=== PATIENT | female | born 1985 | race Caucasian/White ===

== ENCOUNTER 2017-05-17 17:06 | Emergency (ER) | payer BC, OTHER ==
[~2017-05-17] VITALS: Ht 170.2 cm; Wt 55.3 kg
[2017-05-17 17:10] VITALS: TEMP 37; Ht 170.2 cm; Wt 55.3 kg
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
[2017-05-17 19:19] VITALS: BP 114/78; PULSE 79; O2SAT 100
== END 2017-05-17 19:22 | disposition home or self-care (01) ==
LOC: EDBD 17:06 → C.EDA 17:07
DX: S06.0X0A Concussion without loss of consciousness, initial encounter (principal); S80.01XA Contusion of right knee, initial encounter; S80.02XA Contusion of left knee, initial encounter; V49.40XA Driver injured in collision with unspecified motor vehicles in traffic accident, initial encounter; Y92.488 Other paved roadways as the place of occurrence of the external cause; S00.03XA Contusion of scalp, initial encounter; M94.8X9 Other specified disorders of cartilage, unspecified sites; I34.1 Nonrheumatic mitral (valve) prolapse; F17.200 Nicotine dependence, unspecified, uncomplicated; Z90.721 Acquired absence of ovaries, unilateral

== ENCOUNTER 2023-12-24 06:20 | Inpatient (IN) ==
--- NOTE | 2023-12-03 11:37 | PAT Medication Instructions ---
Medication Instructions Date of Service December 03, 2023 Home Medications albuterol sulfate 90 mcg/actuation aerosol inhaler (Proventil HFA) 2 puff inhalation QID PRN shortness of breath, wheezing biotin 10,000 mcg chewable tablet (Hair, Skin and Nails (biotin)) 10,000 mcg PO QAM cholecalciferol (vitamin D3) 25 mcg (1,000 unit) capsule (Vitamin D3) 25 mcg PO QAM cyanocobalamin (vitamin B-12) 1 tab PO QAM fluticasone 250 mcg-salmeterol 50 mcg/dose blistr powdr for inhalation (Advair Diskus) 1 inh inhalation BID PRN shortness of breath, wheezing loratadine 10 mg tablet 10 mg PO QAM multivitamin 1 tab PO QAM zinc sulfate-vitamin C 200 mg-100 mg tablet 1 tab PO QAM DO NOT take the morning of surgery biotin 10,000 mcg chewable tablet (Hair, Skin and Nails (biotin)) 10,000 mcg PO QAM cholecalciferol (vitamin D3) 25 mcg (1,000 unit) capsule (Vitamin D3) 25 mcg PO QAM cyanocobalamin (vitamin B-12) 1 tab PO QAM loratadine 10 mg tablet 10 mg PO QAM multivitamin 1 tab PO QAM zinc sulfate-vitamin C 200 mg-100 mg tablet 1 tab PO QAM Take morning of surgery albuterol sulfate 90 mcg/actuation aerosol inhaler (Proventil HFA) 2 puff inhalation QID PRN shortness of breath, wheezing (use if needed; please bring rescue inhaler with you to hospital day of surgery if possible) fluticasone 250 mcg-salmeterol 50 mcg/dose blistr powdr for inhalation (Advair Diskus) 1 inh inhalation BID PRN shortness of breath, wheezing (if needed) NOTHING TO EAT OR DRINK AFTER MIDNIGHT Other Notes If you have any questions please call us at [phone] or [phone] or [phone] or [phone]
--- NOTE | 2023-12-09 10:21 | Anesthesiology Consultation ---
Date of Service December 09, 2023 Assessment & Plan (1) Encounter for pre-operative examination: - check urine test STAT am DOS. - chlorhexidine wipes discussed with patient: she prefers to avoid use given history of severe, extensive skin reactions. Dr. Garcia's office made aware. Chart Review Chart Review: Acceptable Risk for Surgery and Patient seen in Pre Admission Testing Teaching & Discussion Pre-Anesthesia Teaching/Discussion Notes: Instructed NPO after midnight before surgery, except medications with 15 cc of water. Medication instructions provided according to the PAT guidelines. History Surgery Operation Date: 12/24/23 08:00 Proposed Procedures p Total Abdominal Hysterectomy - Jagjit Garcia MD Height/Weight Height: 5 ft 7 in Weight: 60.1 kg Allergies Allergy/AdvReac Type Severity Reaction Status Date / Time bee venom protein (honey bee) Allergy Severe Anaphylaxis Verified 12/09/23 10:29 acetaminophen [From Vicodin] Allergy Unknown "shut down Verified 12/02/23 15:03 my bladder" cocamidopropyl betaine Allergy Unknown Rash Verified 12/02/23 15:03 ethylenediamine Allergy Unknown Rash Verified 12/02/23 15:03 formaldehyde Allergy Unknown Rash Verified 12/02/23 15:03 hydrocodone [From Vicodin] Allergy Unknown "shut down Verified 12/02/23 15:03 my bladder" phenazopyridine Allergy Unknown Hives Verified 12/02/23 15:03 quaternium 15 Allergy Unknown Rash Verified 12/02/23 15:03 adhesive Allergy red rash, Verified 12/02/23 15:26 irritation Medications Home Medications Medication Instructions Recorded Confirmed Last Taken albuterol sulfate 90 mcg/actuation 2 puff inhalation QID PRN 12/02/23 12/02/23 Unknown aerosol inhaler (Proventil HFA) shortness of breath, wheezing biotin 10,000 mcg chewable tablet 10,000 mcg PO QAM 12/02/23 12/02/23 Unknown (Hair, Skin and Nails (biotin)) cholecalciferol (vitamin D3) 25 25 mcg PO QAM 12/02/23 12/02/23 Unknown mcg (1,000 unit) capsule (Vitamin D3) cyanocobalamin (vitamin B-12) 1 tab PO QAM 12/02/23 12/02/23 Unknown fluticasone 250 mcg-salmeterol 50 1 inh inhalation BID PRN shortness 12/02/23 12/02/23 Unknown mcg/dose blistr powdr for of breath, wheezing inhalation (Advair Diskus) loratadine 10 mg tablet 10 mg PO QAM 12/02/23 12/02/23 Unknown multivitamin 1 tab PO QAM 12/02/23 12/02/23 Unknown zinc sulfate-vitamin C 200 mg-100 1 tab PO QAM 12/02/23 12/02/23 Unknown mg tablet Past Medical History Medical History History of difficult venous access Hx of renal calculi last episode 4 yrs ago History of anxiety no longer taking medications Hx of mitral valve prolapse ~age 13, found out about asthma and MVP, "told it has healed itself"; no longer has to f/u cardio. Hx of cardiac murmur Asthma exercise induced asthma>has inh x2 prn "has not used advair disk for over 1 year, last used the albuterol inhaler early spring 2023" History of anesthesia reaction had to go to ER twice within 24 hours after surgery to have bladder drained and catheter placed for 4-5 days after having Vicodin; also woke up during laparoscopy for removal of ovary-[facility] [place] age 26; also tends to get hyper instead of tired after surgery/anesthesia Patient denies h/o stroke, seizures, heart attack, heart failure, DM, HTN, blood clots/DVTs or blood transfusions. Exercise / Class Metabolic Activity II 4-5 Yardwork/Stairs/Walk up hill (denies chest discomfort or shortness of breath with 1 FOS) Past Surgical History Surgical History History of dilatation and curettage x5-6 for fibroids Hx of laparoscopy w/removal ovary Past Anesthesia History No Family Hx of Anesthesia Complications and Other (see above) History of PONV No Hx of PONV and Hx of Motion Sickness Social History Smoking Status: Former smoker Smoking cigarettes per day: occasional vaping-advised Do You Dip or Chew Tobacco: No Smoking End Date: quit cigs 01/2024 Hx Alcohol Use: Yes alcohol intake frequency: holidays/special occasions only Hx Substance Use: No substance use type: does not use Review of Systems Patient denies chest pain, shortness of breath, dyspnea on exertion, snoring, witnessed apneas, reflux, fever, chills, cough, wheezing, or palpitations. Physical Exam Vital Signs Vitals BP 114/74 P 84 TEMP 98.4 SP02 100% on RA RESP 18 Physical Patient resting comfortably in chair in no acute distress, alert and oriented, responding appropriately throughout visit Full cervical extension range of motion without pain TMD 3.5 finger breadths Mallampati Score 2 Dentition: intact, denies chipped or loose teeth, caps/crowns, implants or bridges Lungs: normal respiratory effort. Good air movement, clear throughout to auscultation, no adventitious breath sounds Cardiac: regular rate and rhythm, no murmurs noted Carotid arteries: negative bruit bilat Lab Results Anesthesia Preop Results Results Anesthesia Widget: WBC 6.37 K/ul (4.8-10.8) 12/09/23 Hgb 13.7 g/dl (12.0-16.0) 12/09/23 Hct 39.9 % (37.0-47.0) 12/09/23 Plt 113 K/uL (130-400) L 12/09/23 Na 137 mmol/L (136-145) 12/09/23 K 3.8 mmol/L (3.5-5.1) 12/09/23 Cl 106 mmol/L (98-107) 12/09/23 CO2 24 mmol/L (21-32) 12/09/23 BUN 14 mg/dl (6-23) 12/09/23 Creat 0.61 mg/dl (0.6-1.2) 12/09/23 Glucose Level 94 mg/dl (70-99(Fasting)) 12/09/23 PT 10.7 Seconds (9.0-12.0) 12/09/23 PTT 29 Seconds (21-31) 12/09/23 INR 1.0 (0.9-1.1) 12/09/23 Urine Color Yellow 11/14/23 Urine Appearance Clear (Clear) 11/14/23 Urine pH 7.0 (4.5-7.5) 11/14/23 Urine Specific [place] 1.009 (1.000-1.030) 11/14/23 Urine Protein Negative (Negative) 11/14/23 Urine Glucose (UA) Negative (Negative) 11/14/23 Urine Ketones Negative (Negative) 11/14/23 Urine Blood Negative (Negative) 11/14/23 Urine Nitrite Negative (Negative) 11/14/23 Urine Bilirubin Negative (Negative) 11/14/23 Urine Urobilinogen Negative (Negative) 11/14/23 Urine Leukocyte Esterase Negative (Negative) 11/14/23 Blood Type O Positive 12/09/23 Antibody Screen NEGATIVE 12/09/23 Testing Echocardiogram Date: 09/18/19 EF 66% Normal LV wall motion No significant valvular abnormalities No evidence of MVP
--- NOTE | 2023-12-09 11:59 | History & Physical Report ---
Date of Service December 09, 2023 Assessment & Plan (1) Pelvic pain in female: (2) Intramural uterine fibroid: (3) Dysfunctional uterine bleeding: Plan Total abdominal hysterectomy with suspension of vaginal cuff. Preservation of right ovary. History of Present Illness Chief Complaint: Pelvic pain irregular heavy bleeding Primary Care Provider: NO PCP Patient is a 37-year-old 4 para 0 she said for first trimester spontaneous miscarriage. General health is complicated by asthma. She is on an inhaler as needed and Claritin. had a vasectomy for control. She has had irregular heavy bleeding. Periods can be irregular . She can skip up to 2 months. She can have 2 periods a month. At times bleeding is heavy soaking over a pad an hour associated with large clots. Bleed her periods last for 10 days. She has had 5 D&Cs in the past in and attempt to control this heavy bleeding. This pattern of irregular heavy bleeding has been present for several years. Symptoms have been getting progressively worse. Patient also has pain with her periods. This is worse during her periods. But now can start prior to her. And last after her period stops. This is associated with pain with intercourse. Specifically pain on deep penetration. Patient is being scheduled for total abdominal hysterectomy with preservation of her only ovary on the right side. Allergies Allergy/AdvReac Type Severity Reaction Status Date / Time bee venom protein (honey bee) Allergy Severe Anaphylaxis Verified 12/09/23 10:29 acetaminophen [From Vicodin] Allergy Unknown "shut down Verified 12/02/23 15:03 my bladder" cocamidopropyl betaine Allergy Unknown Rash Verified 12/02/23 15:03 ethylenediamine Allergy Unknown Rash Verified 12/02/23 15:03 formaldehyde Allergy Unknown Rash Verified 12/02/23 15:03 hydrocodone [From Vicodin] Allergy Unknown "shut down Verified 12/02/23 15:03 my bladder" phenazopyridine Allergy Unknown Hives Verified 12/02/23 15:03 quaternium 15 Allergy Unknown Rash Verified 12/02/23 15:03 adhesive Allergy red rash, Verified 12/02/23 15:26 irritation Home Medications Medication Instructions Recorded Confirmed Type albuterol sulfate 90 mcg/actuation 2 puff inhalation QID PRN 12/02/23 12/02/23 History aerosol inhaler (Proventil HFA) shortness of breath, wheezing biotin 10,000 mcg chewable tablet 10,000 mcg PO QAM 12/02/23 12/02/23 History (Hair, Skin and Nails (biotin)) cholecalciferol (vitamin D3) 25 25 mcg PO QAM 12/02/23 12/02/23 History mcg (1,000 unit) capsule (Vitamin D3) cyanocobalamin (vitamin B-12) 1 tab PO QAM 12/02/23 12/02/23 History fluticasone 250 mcg-salmeterol 50 1 inh inhalation BID PRN shortness 12/02/23 12/02/23 History mcg/dose blistr powdr for of breath, wheezing inhalation (Advair Diskus) loratadine 10 mg tablet 10 mg PO QAM 12/02/23 12/02/23 History multivitamin 1 tab PO QAM 12/02/23 12/02/23 History zinc sulfate-vitamin C 200 mg-100 1 tab PO QAM 12/02/23 12/02/23 History mg tablet Past Med/Surg History Medical History History of difficult venous access Hx of renal calculi last episode 4 yrs ago History of anxiety no longer taking medications Hx of mitral valve prolapse ~age 13, found out about asthma and MVP, "told it has healed itself"; no longer has to f/u cardio. Hx of cardiac murmur Asthma exercise induced asthma>has inh x2 prn "has not used advair disk for over 1 year, last used the albuterol inhaler early spring 2023" History of anesthesia reaction had to go to ER twice within 24 hours after surgery to have bladder drained and catheter placed for 4-5 days after having Vicodin; also woke up during laparoscopy for removal [facility] ovary[facility] 26; also tends to get hyper instead of tired after surgery/anesthesia Surgical History History of dilatation and curettage x5-6 for fibroids Hx of laparoscopy w/removal ovary Social History Smoking Status: Former smoker Tobacco Type: E-cigarettes / Vaping Cigarettes Per Day: occasional vaping-advised; Second Hand Exposure: No; Do You Dip or Chew Tobacco: No; Hx Alcohol Use: Yes Hx Substance Use: No Preferred Language: Arabic Communication Ability: Effective Non Destructive Testing Technician Required: No Beliefs That Will Affect Care: None Current Living Situation: Spouse Feels Safe at Home: Yes Assistive Devices: Glasses Physical Exam Physical Exam: Patient is a well-developed well-nourished 37-year-old white female alert oriented x 3 cooperative in no acute distress. Neck was supple trachea midline. No cervical adenopathy. Chest was clear to auscultation and percussion. Heart had a regular rhythm S1 and S2 were normal. Abdomen was soft and nontender. There was no CVA tenderness. Pelvic exam revealed a normal-appearing cervix. Uterus was anteverted top normal size. There were no adnexal masses. There was no calf tenderness.
[2023-12-24] MEDS: LR 15ML/HR IV SCH (07:05)
[2023-12-24] MEDS ORDERED: LIDOCAINE 2% 2 ML VIAL/AMP(20MG/ML) INFIL ONE (07:08)
[2023-12-24] MEDS ORDERED: ROCURONIUM BROMIDE 10 MG/ML 5 ML VIAL IV ONE ×2 (07:08→09:13)
[2023-12-24] MEDS ORDERED: ONDANSETRON INJ 2 MG/ML 2 ML VIAL ONE (07:08)
[2023-12-24] MEDS ORDERED: DEXAMETHASONE SOD INJ 4 MG/ML VIAL ONE (07:08)
[2023-12-24] MEDS ORDERED: PROPOFOL IV EMULSION 10 MG/ML 20 ML VIAL IV ONE ×3 (07:08→09:09)
[2023-12-24] MEDS ORDERED: fentaNYL citrate PF 100 MCG/2 ML VIAL ONE (07:09)
[2023-12-24] MEDS ORDERED: MIDAZOLAM HCL 1 MG/ML 2ML VIAL ONE (07:09)
--- NOTE | 2023-12-24 07:11 | History & Physical Bridge Note ---
Date of Service December 24, 2023 History & Physical Bridge Note I have examined the patient, reviewed the History & Physical and in the interval since the performance of the History & Physical I have noted the following changes of clinical significance: no changes noted
[2023-12-24 07:21] LABS: Pregnancy Test, Serum Negative (Negative)
[2023-12-24] MEDS ORDERED: MoRPHine SULFATE PF 1 MG/ML 10 ML AMP/VIAL ONE (07:34)
[2023-12-24] MEDS ORDERED: ACETAMINOPHEN 1000 MG/100 ML IV IV ONE (07:35)
[2023-12-24] MEDS: cefOXitin 2,000 MG in DEXTROSE 5 % MINI-B 50 ML IV SCH (08:00)
[2023-12-24] MEDS ORDERED: NALBUPHINE HCL 5 MG in SYRINGE 0 ML IV PRN (08:14)
[2023-12-24] MEDS ORDERED: MoRPHine SULFATE PF 1 MG/ML 10 ML AMP/VIAL INT SPINAL ONE (08:14)
[2023-12-24] MEDS ORDERED: NALOXONE HCL 0.08 MG in SYRINGE 1.8 ML IV PRN (08:14)
[2023-12-24] MEDS ORDERED: NALOXONE HCL 1 MG in SODIUM CHLORIDE 0.9% 1,000 ML IV PRN (08:14)
[2023-12-24] MEDS ORDERED: ePHEDrine sulfate 50 MG/ML AMP IV PRN (08:14)
[2023-12-24] MEDS ORDERED: ONDANSETRON INJ 2 MG/ML 2 ML VIAL IV PRN (08:14)
[2023-12-24] MEDS ORDERED: LACTATED RINGER'S 500 ML IV PRN (08:14)
[2023-12-24] MEDS ORDERED: NALOXONE HCL 0.4 MG/1 ML VIAL/CARP IV PRN (08:14)
[2023-12-24] MEDS ORDERED: DROPERIDOL 5 MG/2 ML VIAL IV PRN (08:14)
[2023-12-24] MEDS ORDERED: NO NARCOTICS OR SEDATIVES SCH (08:15)
[2023-12-24] MEDS ORDERED: SODIUM CHLORIDE 0.9% 1,000 ML IV SCH (08:15)
[2023-12-24] MEDS ORDERED: DC INTRASPINAL MORPHINE SCH (08:15)
[2023-12-24] MEDS ORDERED: GLYCOPYRROLATE 0.2 MG/ML VIAL ONE (10:19)
[2023-12-24] MEDS ORDERED: ePHEDrine sulfate 50 MG/5 ML SYR ONE (10:19)
[2023-12-24] MEDS ORDERED: NEOSTIGMINE METHYLSULFATE 1 MG/ML 10ML VIAL ONE (10:19)
[2023-12-24] MEDS: HEPARIN (PORCINE) 1000 UNIT/ML 10 ML (CATH LAB USE ONLY) ONE (10:26)
[2023-12-24] MEDS ORDERED: SENNA 8.6 MG TAB PO PRN (10:56)
[2023-12-24] MEDS ORDERED: IBUPROFEN 600 MG TAB PO PRN (10:56)
--- NOTE | 2023-12-24 10:56 | Operative Report ---
Post Operative Report Pre & Post Diagnosis Operation Date: 12/24/23 08:00 Pre-Op Diagnosis: Fibroid Uterus, Dysmenorrhea, Menorrhagia Post-Op Diagnosis: Fibroid Uterus, Dysmenorrhea, Menorrhagia I identified the patient and participated in the time-out.: Yes Procedure Operation Date: 12/24/23 08:00 Actual Procedures p Total Abdominal Hysterectomy(Not Applicable) - Jagjit Garcia MD Surgeon Jagjit Garcia MD Car Salter none Estimated Blood Loss 450 Findings Consistent with Post-Op Diagnosis absent right ovary adhesion of left ovary Specimens uterus and cervix Drains shiv drain vaginal cuff with safety pin Anesthesia Type General Indications Persistent heavy vaginal bleeding. History of 5 D&Cs. Description of Procedure Patient was brought to the OR correctly identified by armband and conversation. Spinal narcotics were administered by the anesthesiologist. Patient was then intubated with general anesthesia. Vaginal prep was done with Betadine. Rogers catheter was inserted aseptically into the bladder connected to gravity drainage. Compression stockings were applied. Lower abdomen was painted with an alcohol-based sterilizing solution. Draped in usual sterile fashion. A small Pfannenstiel incision was noted and this incision was extended on either side. Incision was carried down to the anterior fascia by blunt and sharp dissection. The fascia was incised transversely from the underlying muscle by blunt and sharp dissection. Recti muscles were in the midline peritoneum was carefully raised and entered. An O'Rajinder-O'Khan self-retaining retractor with 4 laparotomy packs were used to retract the intestines and provide adequate exposure of the pelvic cavity the top normal size uterus was brought out through the incision. The only ovary was the right ovary. It was fixed to the lateral pelvic wall. And was freed with blunt dissection. Following this the round ligaments on either side were clamped proximally and distally. And then ligated with a transfixion suture of chromic catgut and a backup suture of silk. An incision was made above the vesicouterine fold the bladder was advanced out of the operative field. Right broad ligament was punched posterior through. Isolating the ovarian ligament and tube on the right side. This was clamped proximally and distally. The distal portion was ligated with a transfixion suture of chromic catgut then a free tie of silk. And the ends were cauterized. The bladder was advanced out of the operative field exposing the uterine vessels. These were clamped with a curved Adrien. And then doubly ligated with a Chromic Gut suture. The cardinal ligaments were then cut by hugging the cervix. At with a curved Adrien then cutting with a stump. And then ligating with a heavy Chromic Gut suture this was done in 3 steps because of the length of the cardinal ligament. The cervix was then shelled out with a electrocautery knife. The suspect surging the surgical specimen consisting of uterus and cervix. The vaginal cuff was grasped at each angle with a straight [place]. A suture of chromic catgut was used to fix the angle of the cuff to the stumps of the cardinal ligaments on each side. The vaginal opening was then approximated front to back with a [id number] suture of chromic gut sutures which were anchored in the stumps of the cardinal ligament. The midportion of the vaginal cuff was whipstitched open with a continuous Chromic Gut suture. The uterosacral ligaments on either side were plicated for support of the vaginal cuff with a heavy Vicryl. A [place] drain with a safety plan was placed into the vagina for drainage. Reperitonealization was accomplished with a 3-0 chromic. When we exposed the right ovary we found multiple filmy adhesions that had been bleeding we had a cauterized the systematically we then approximated the peritoneal edges from the right side to the middle and then from the left side to the middle and tied the 2 sutures together Shiv drain we put in the cul-de-sac everything was washed clean hemostasis was good we removed the 4 PACs estimated blood loss was 450 cc we did and we did a careful anatomical approximation of the anterior abdominal wall. Peritoneum was closed with a continuous Chromic Gut suture. Recti muscles were approximated with interrupted [id number] suture of chromic catgut. Fascia was closed with continuous interlocking suture of Vicryl on each side tied in the midline. Subcu was approximated with a running plain. The skin edges were approximated with staple clips. Patient Toller procedure well left the OR in good condition thank you. .. I attest to the content of the Intraoperative Record and any orders documented therein. Any exceptions are noted below.
[2023-12-24] MEDS ORDERED: diphenhydrAMINE 50 MG/ML VIAL ONE (10:59)
[2023-12-24] MEDS: MoRPHine SULFATE 2 MG/ML CARP IV PRN (11:18)
[2023-12-24] MEDS: KETOROLAC 30 MG/ML VIAL IV PRN (11:20)
--- NOTE | 2023-12-24 11:49 | Anesthesiology Progress Note ---
Date of Service December 24, 2023 Anesthesia Post Procedure Vital Signs Vital Signs: Temp Pulse Resp BP Pulse Ox O2 Del Method O2 Flow Rate 12/24/23 11:05 68 12 99/53 L 98 Room Air 12/24/23 10:57 36 C L 74 12 91/50 L 98 Oxymask 6 12/24/23 06:53 36.6 C 71 18 114/65 98 Room Air Transfer of Care Handoff Completed per policy Notes Mental Status: alert / awake / arousable Patient Amnestic to Procedure: Yes Nausea / Vomiting: adequately controlled Pain: adequately controlled Airway Patency, RR, SpO2: stable & adequate BP & HR: stable & adequate Hydration State: stable & adequate Anesthetic Complications: no major complications apparent
[2023-12-24] MEDS: MoRPHine SULFATE 4 MG/ML 1 ML CARP\\VIAL ONE (12:04)
[2023-12-24] MEDS: D5W AND LACTATED RINGERS 1,000 ML IV SCH (14:41)
[2023-12-24] MEDS ORDERED: Nursing to Pharmacy Communication SCH (17:45)
[2023-12-24] MEDS: diphenhydrAMINE 50 MG/ML VIAL IV PRN (17:56)
[2023-12-24] MEDS ORDERED: SENNOSIDES 8.8 MG/5 ML UDC PO PRN (18:10)
[2023-12-25] MEDS ORDERED: KETOROLAC 30 MG/ML VIAL IV PRN (02:14)
[2023-12-25] MEDS ORDERED: MEPERIDINE HCL 50 MG/ML CARP IV PRN (02:14)
[2023-12-25] MEDS ORDERED: oxyCODONE/ACETAMINOPHEN 5mg/325mg TAB PO PRN (02:14)
[2023-12-25 06:21] LABS: BUN Creatinine Ratio 12.5 (10-20); Calcium 8.4 mg/dl (8.6-10.3); Creatinine Clr Calc Pharmacy 109.9 ml/min; Est GFR (African American) 129.4 ml/min; Est GFR (Non-African American) 111.6 ml/min; Potassium 3.7 mmol/L (3.5-5.1)
[2023-12-25] MEDS ORDERED: Nursing to Pharmacy Communication SCH (06:45)
[2023-12-25] MEDS: oxyCODONE HCL SOLN 5 MG/5 ML UDC PO PRN ×2 (06:50→17:43)
[2023-12-25] MEDS: IBUPROFEN SUSPENSION 100MG/5ML 120ML PO PRN (06:53)
--- NOTE | 2023-12-25 09:00 | Obstetrical Progress Note ---
Date of Service December 25, 2023 Assessment & Plan Admission and Anticipated Discharge Date Admission Date: December 24, 2023 Subjective abdomen soft and non tender bandage removed incision is clean and dry passing flatus ambulating well no calf tenderness vaginal bleeding scant hg pending Results & Data Vital Signs (Past 12 Hours) Vital Signs Temp Pulse Resp BP BP Pulse Ox O2 Del Method 12/25/23 08:15 37.5 C 85 18 109/59 L 100 Room Air 12/25/23 02:30 36.9 C 60 20 106/54 L 100 Room Air 12/25/23 02:00 18 98 12/25/23 01:00 16 97 12/25/23 00:00 16 96 12/24/23 23:20 18 100 12/24/23 23:20 37.0 C 63 18 109/60 100 Room Air 12/24/23 22:00 18 97 12/24/23 21:00 20 98
[2023-12-25 09:33] LABS: Hematocrit (blood only) 32.7 % (37.0-47.0); Hemoglobin 10.8 g/dl (12.0-16.0)
[2023-12-25] MEDS: ACETAMINOPHEN SUSP 325 MG/10.15 ML UDC PO PRN ×2 (14:12→18:54)
[2023-12-26] MEDS: IBUPROFEN 200 MG/10 ML UDC PO PRN (03:55)
[2023-12-26 07:10] LABS: BUN Creatinine Ratio 21.3 (10-20); Calcium 8.3 mg/dl (8.6-10.3); Creatinine Clr Calc Pharmacy 115.3 ml/min; Est GFR (African American) 131.4 ml/min; Est GFR (Non-African American) 113.4 ml/min
[2023-12-26] MEDS: bisacodyL 10 MG SUPP PR PRN (07:47)
--- NOTE | 2023-12-26 08:55 | Obstetrical Progress Note ---
Date of Service December 26, 2023 Assessment & Plan Admission and Anticipated Discharge Date Admission Date: December 24, 2023 Subjective abdomen soft and non tender incision is clean and dry passing gas no calf tenderness ambulating well vaginal bleeding scant hgb 10.9 Results & Data Vital Signs (Past 12 Hours) Vital Signs Temp Pulse Resp BP Pulse Ox O2 Del Method 12/26/23 03:55 36.8 C 86 18 109/63 98 Room Air 12/26/23 00:15 36.7 C 82 16 95/60 L 99 Room Air
[2023-12-26] MEDS: ONDANSETRON 4 MG OD TAB PO STA (09:14)
--- NOTE | 2023-12-26 09:14 | Discharge Summary ---
Date of Service December 26, 2023 Admission HPI Per Admitting Provider Patient is a 37-year-old 4 para 0 she said for first trimester spontaneous miscarriage. General health is complicated by asthma. She is on an inhaler as needed and Claritin. had a vasectomy for control. She has had irregular heavy bleeding. Periods can be irregular . She can skip up to 2 months. She can have 2 periods a month. At times bleeding is heavy soaking over a pad an hour associated with large clots. Bleed her periods last for 10 days. She has had 5 D&Cs in the past in and attempt to control this heavy bleeding. This pattern of irregular heavy bleeding has been present for several years. Symptoms have been getting progressively worse. Patient also has pain with her periods. This is worse during her periods. But now can start prior to her. And last after her period stops. This is associated with pain with intercourse. Specifically pain on deep penetration. Patient is being scheduled for total abdominal hysterectomy with preservation of her only ovary on the right side. Patient's hospital course was as follows. Patient was admitted given prophylactic antibiotics taken to the OR. She had total abdominal hysterectomy with suspension of the vaginal cuff. Preservation of her right ovary. Her left ovary had been removed prior to surgery for dermoid. There was adhesions of the right ovary to the lateral pelvic wall. This resulted in some excess bleeding during surgery. Estimated blood loss at the time of surgery was 450 mL. Postoperatively the patient did well. Her preop hemoglobin was 13.4. Postoperatively hemoglobin fell to 10.9. She remained afebrile throughout her postoperative course. Shiv drain with safety clip fell out on the first postoperative day. Within 24 hours bowel sounds returned and she started tolerating a diet. At the time of discharge she was ambulating well eating well. Pain was well-controlled. Discharge Data Procedures Performed Operation Date: 12/24/23 08:00 Actual Procedures p Total Abdominal Hysterectomy(Not Applicable) - Jagjit Garcia MD Hospital Course (1) Pelvic pain in female: (2) Intramural uterine fibroid: (3) Dysfunctional uterine bleeding:
[2023-12-26] MEDS: MAGNESIUM HYDROXIDE SUSP 30 ML UDC PO PRN (10:29)
== END 2023-12-26 12:00 | disposition home or self-care (01) | DRG 743 ==
LOC: ASU 06:20 → 4E1 10:56